=== PATIENT | male | born 1985 | race Caucasian/White ===

== ENCOUNTER 2020-04-19 20:36 | Day surgery (SDC) | payer BC ==
[~2020-04-19] VITALS: Ht 182.9 cm; Wt 91.0 kg
--- NOTE | 2020-04-19 20:36 | NUR ---
INITIAL PT CONTACT. PT PRESENTS TO ED A TRANSFER FROM [facility] FOR RIGHT LOWER QUAD ABD PAIN, DX WITH APPY AT TRANSFERING FACILITY. PT REPORTS 5/10 PAIN, AND MILD NAUSEA. PT UPRIGHT ON GURNEY, VSS. PT PROVIDED WARM BLANKET. PT NPO SINCE 10PM LAST NIGHT, APPROX 23 HOURS. ERP AT BEDSIDE.
[2020-04-19] MEDS ORDERED: ONDANSETRON 2MG/ML, 2ML IVPush PRN (21:00)
[2020-04-19] MEDS ORDERED: SODIUM CHLORIDE FLUSH 10ML SYR IVF PRN (21:00)
[2020-04-19] MEDS ORDERED: SODIUM CHLORIDE 0.9% 1,000 ML IV ONE (21:00)
[2020-04-19] MEDS ORDERED: PIPERACILLIN/TAZO/PMX 3.375GM 50 ML IV ONE (21:00)
[2020-04-19] MEDS ORDERED: MORPHINE SULFATE 4 MG/ML, 1ML ONE ×2 (21:14→23:48)
[2020-04-19] MEDS ORDERED: ONDANSETRON 2MG/ML, 2ML ONE (21:14)
[2020-04-19] MEDS ORDERED: PIPERACILLIN/TAZO/PMX 3.375GM 50 ML ONE (21:14)
[2020-04-19] MEDS: MORPHINE SULFATE 4 MG/ML, 1ML IVPush PRN ×2 (21:16→23:51)
--- NOTE | 2020-04-19 22:08 | NUR ---
PT SITTING UPRIGHT ON GURNEY, NAD, VSS. PT DENIES ANY NEEDS AT THIS TIME. CALL LIGHT AND PERSONAL BELONGINGS WITHIN REACH. PT REPORTS "VERY MINIMAL PAIN" FOLLOWING BASKET ASSEMBLER.
--- NOTE | 2020-04-19 23:10 | NUR ---
PIV PLACED BY TRANSFERING FACILITY FOUND TO BE INFILTRATED UPON ASSESSMENT. PT REPORTS SLIGHT TENDERNESS AND SWELLING TO PIV INSERTION SITE. PIV REMOVED AND PRESSURE DRESSING APPLIED. NEW PIV PLACED IN LEFT AC. PT TOLERATED WELL.
--- NOTE | 2020-04-20 02:00 | NUR ---
PT SUPINE ON HOSPITAL BED, VSS, NAD. RESTING COMFORTABLY WITH EYES CLOSED. PT DENIES ANY NEEDS AT THIS TIME. CALL LIGHT AND PERSONAL BELONGINGS WITHIN REACH. Addendum: 04/20/20 at 0214 by HORACIO [facility], REFUSES HOSPITAL BED AT THIS TIME. VSS, NAD. RESTING COMFORTABLY WITH EYES CLOSED. PT DENIES ANY NEEDS AT THIS TIME. CALL LIGHT AND PERSONAL BELONGINGS WITHIN REACH.
[2020-04-20] MEDS ORDERED: MORPHINE SULFATE 4 MG/ML, 1ML ONE (04:00)
[2020-04-20] MEDS: MORPHINE SULFATE 4 MG/ML, 1ML IVPush PRN (04:03)
--- NOTE | 2020-04-20 04:06 | NUR ---
PT SITTING UPRIGHT ON GURNEY WATCHING TV, NAD, VSS. PT REPORTS INCREASED PAIN AND REQUESTS PAIN MEDICATION, MEDICATED PER EMAR. PT REPOSITIONED IN BED PER REQUEST. NO ADDITIONAL NEEDS AT THIS TIME. CALL LIGHT AND PERSONAL BELONGINGS WITHIN REACH.
--- NOTE | 2020-04-20 05:10 | NUR ---
PT SUPINE ON GURNEY, VSS, NAD. RESTING COMFORTABLY WATCHING TV. PT DENIES ANY NEEDS AT THIS TIME. CALL LIGHT AND PERSONAL BELONGINGS WITHIN REACH.
[2020-04-20 06:02] VITALS: BP 101/70
--- NOTE | 2020-04-20 06:02 | NUR ---
Pt to be admitted to OR. Report called to HIMS MANAGER.
[2020-04-20] MEDS ORDERED: BUPIVACAINE/PF 0.5% ONE (06:31)
[2020-04-20] MEDS ORDERED: FENTANYL PF 100 MCG/2ML ONE (06:41)
[2020-04-20] MEDS ORDERED: MIDAZOLAM 1 MG/ML, 2ML ONE (06:41)
[2020-04-20] MEDS ORDERED: HYDROmorphone 1 MG/ML, 1ML INJ IVPush PRN (07:00)
[2020-04-20] MEDS ORDERED: CEFOTETAN 2 GM ONE (07:00)
[2020-04-20] MEDS ORDERED: DIAZEPAM 5 MG/ML, 2ML IVPush PRN (07:00)
[2020-04-20] MEDS ORDERED: MEPERIDINE/PF 25MG/0.5ML IVPush PRN (07:00)
[2020-04-20] MEDS ORDERED: FENTANYL PF 100 MCG/2ML IV PRN (07:00)
[2020-04-20] MEDS ORDERED: ACETAMINOPHEN 325 MG TABLET PO PRN (07:00)
[2020-04-20] MEDS ORDERED: ONDANSETRON 2MG/ML, 2ML ONE (07:00)
[2020-04-20] MEDS ORDERED: PROMETHAZINE 25 MG/ML, 1ML IVPush PRN (07:00)
[2020-04-20] MEDS ORDERED: SUGAMMADEX 200 MG/2 ML IVPush ONE (07:00)
[2020-04-20] MEDS ORDERED: OXYcodone 5 MG/5 ML ORAL.SOL UDC PO PRN (07:00)
[2020-04-20] MEDS ORDERED: ROCURONIUM 10 MG/ML,10ML ONE (07:00)
[2020-04-20] MEDS ORDERED: KETOROLAC 30 MG/1 ML ONE (07:00)
[2020-04-20] MEDS ORDERED: DIPHENHYDRAMINE 50 MG/ML, 1ML IVPush PRN (07:00)
[2020-04-20] MEDS ORDERED: ONDANSETRON 2MG/ML, 2ML IVPush PRN (07:00)
[2020-04-20] MEDS ORDERED: PROPOFOL 10 MG/ML, 20ML ONE (07:00)
[2020-04-20] MEDS ORDERED: DEXAMETHASONE 4 MG/ML, 1ML ONE (07:00)
[2020-04-20] MEDS ORDERED: ACETAMINOPHEN 325 MG TABLET ONE (07:59)
[2020-04-20] MEDS ORDERED: OXYcodone 5 MG/5 ML ORAL.SOL UDC ONE (08:00)
[2020-04-20] MEDS ORDERED: MEPERIDINE/PF 25MG/ML,1ML ONE (08:04)
== END 2020-04-20 10:40 | disposition home or self-care (01) ==
LOC: ED 21:06 → UNDOADMIN 21:30 → OUT 21:30 → EDIP 21:30 → EDSTATUS 04-20 06:45 → UNDODISIN 04-20 10:40 → OUT 04-20 10:40
PROVIDERS: ATTEND Emergency Medicine
DX: K35.890 Other acute appendicitis without perforation or gangrene (principal); F17.220 Nicotine dependence, chewing tobacco, uncomplicated; F12.90 Cannabis use, unspecified, uncomplicated; Z72.89 Other problems related to lifestyle
CPT/HCPCS: 44970; 88304; 99285; J1100; J1885; J2175; J2250; J2270; J2405; J2543; J2704; J3010; J7030